=== PATIENT | female | born 1985 | race Caucasian/White ===

== ENCOUNTER 2018-10-02 18:50 | Emergency (ER) | payer BC, MEDICAID ==
[~2018-10-02] VITALS: Ht 147.3 cm; Wt 64.4 kg
[2018-10-02 19:44] VITALS: BP 116/79
== END 2018-10-02 21:24 | disposition home or self-care (01) ==
LOC: ER 18:50
DX: H10.021 Other mucopurulent conjunctivitis, right eye (principal)
CPT/HCPCS: 99283

== ENCOUNTER 2019-02-04 08:28 | Emergency (ER) | payer MEDICAID, OTHER ==
[~2019-02-04] VITALS: Ht 147.3 cm; Wt 64.0 kg
[2019-02-04 09:14] LABS: CLARITY URINE CLOUDY (CLEAR); COLOR URINE YELLOW (YELLOW); KETONES URINE NEGATIVE (NEGATIVE); LEUKOCYTE ESTERASE URINE 1+ (NEGATIVE); NITRITE URINE NEGATIVE (NEGATIVE); OCCULT BLOOD URINE 3+ (NEGATIVE); PH URINE 8.5 (4.5-8.0); PROTEIN URINE NEGATIVE (NEGATIVE); SPECIFIC GRAVITY URINE 1.017 (1.005-1.030)
[2019-02-04 09:22] LABS: BASOPHILS % 0.4 % (0.0-2.0); EOSINOPHILS % 0.8 % (0.0-5.0); HEMATOCRIT. 42.1 % (36.0-48.0); HEMOGLOBIN. 14.8 g/dL (12.0-16.0); LYMPHOCYTES % 24.6 % (20.0-50.0); MEAN CORPUSCULAR HEMOGLOBIN 32.6 pg (28.0-32.0); MEAN CORPUSCULAR VOLUME 92.7 fL (81.0-99.0); MEAN PLATELET VOLUME 9.7 fl (7.4-10.4); MONOCYTES % 4.2 % (2.0-8.0); PLATELET 189 x1000/uL (130-400); RED BLOOD CELL COUNT 4.55 mill/uL (4.2-5.4); RED CELL DISTRIBUTION WIDTH 12.9 % (11.6-14.6)
[2019-02-04 09:27] LABS: CHLORIDE 105 mEq/L (98-107)
[2019-02-04 09:53] LABS: B-HCG QUANTITATIVE 16435 mIU/mL (<3)
[2019-02-04] MEDS ORDERED: NITROFURANTOIN 100MG M/M CAPSULE PO ONE (10:15)
[2019-02-04] MEDS ORDERED: ONDANSETRON 4MG ODT PO ONE (13:15)
[2019-02-04 15:30] VITALS: BP 96/52
== END 2019-02-04 15:50 | disposition home or self-care (01) ==
LOC: ER 08:28
DX: O20.0 Threatened abortion (principal); O23.12 Infections of bladder in pregnancy, second trimester; Z3A.15 15 weeks gestation of pregnancy; Z59.0 Homelessness
CPT/HCPCS: 36415; 76805; 80053; 81003; 81025; 84702; 85025; 86850; 86900; 86901; 87086; 99284; Q0162

== ENCOUNTER 2024-10-31 21:58 | Emergency (ER) | payer MEDICAID, OTHER ==
[~2024-10-31] VITALS: Ht 149.9 cm; Wt 69.0 kg
[2024-10-31 22:11] VITALS: BP 128/69; PULSE 80; RESP 16; TEMP 36.9; O2SAT 100; O2SAT 99
[2024-10-31] MEDS: TETRACAINE 0.5% OPHTH DROPS 4ML BOTHEYE ONE (23:45)
[2024-10-31] MEDS: DEXAMETHASONE 10 MG/ML VIAL IM ONE (23:45)
[2024-10-31] MEDS: FLUORESCEIN SODIUM 1MG/STRIP BOTHEYE ONE (23:45)
[2024-11-01] MEDS ORDERED: OCUFLX EACHEYE (01:06)
== END 2024-11-01 02:03 | disposition home or self-care (01) ==
LOC: ER 21:58
DX: H10.9 Unspecified conjunctivitis (principal); J02.8 Acute pharyngitis due to other specified organisms; I88.9 Nonspecific lymphadenitis, unspecified; B97.89 Other viral agents as the cause of diseases classified elsewhere
CPT/HCPCS: 99283; 96372; J1100